=== PATIENT | male | born 1950 | race Caucasian/White ===

== ENCOUNTER 2018-01-18 10:40 | Day surgery (SDC) | payer MEDICARE, OTHER ==
[~2018-01-18 10:40] MED LIST: RINGER'S SOLUTION,LACTATED 1,000 ML IV PRN; ceFAZolin SODIUM 2 GM in DEXTROSE 5 % IN WATER 50 ML IV PRN
[2018-01-18] MEDS ORDERED: ceFAZolin SODIUM 1 GM VIAL IV ONE (11:35)
[2018-01-18] MEDS ORDERED: BUPIVACAINE HCL/EPINEPHRINE 50 ML VIAL IJ ONE ×2 (11:54)
[2018-01-18] MEDS ORDERED: RINGER'S SOLUTION,LACTATED 1,000 ML IV ONE ×2 (11:55→11:56)
[2018-01-18] MEDS ORDERED: RINGER'S SOLUTION,LACTATED 1,000 ML IV PRN (13:18)
[2018-01-18] MEDS ORDERED: HYDROmorphone HCL 1 MG/ML DISP.SYRIN IV ONE (13:19)
[2018-01-18] MEDS ORDERED: oxyCODONE HCL/ACETAMINOPHEN 1 TAB TABLET PO ONE (14:00)
[2018-01-18] MEDS ORDERED: HYDROmorphone HCL 2 MG/ML VIAL IV ONE (14:00)
--- NOTE | 2018-01-18 14:33 | OR ---
Operative Report - Dictated Report Narrative: OPERATIVE REPORT DATE OF OPERATION: 01/18/2018 PREOPERATIVE DIAGNOSIS: Ventral incisional hernia POSTOPERATIVE DIAGNOSIS: Ventral incisional hernia with a 4 cm fascial defect OPERATION: Repair of ventral incisional hernia using a large Ventralex hernia patch SURGEON: Radhika Matthews MD ANESTHESIA: Gen. antonio Hunter CRNA INDICATIONS FOR PROCEDURE: The patient is a 67-year-old male referred by Dr. Del Angel. He had a robotically assisted laparoscopic prostatectomy in 2016. He has developed an enlarging and increasingly symptomatic ventral incisional hernia just above the umbilicus. FINDINGS: 4 cm fascial defect with large hernia sac containing reducible normal -appearing small intestine NARRATIVE OF PROCEDURE: The patient was identified preoperatively, the surgical site was identified, and prior to the administration of anesthetic a multidisciplinary timeout was observed. The patient was placed supine, SCDs were applied, 2 g of intravenous Ancef administered. General endotracheal anesthetic was administered. The patient's abdomen was prepped with Betadine solution and the area around the umbilicus isolated with 4 sterile towels. The remainder the patient was covered with a sterile disposable drape. An elliptical skin incision was outlined with a marking pen to include the previous supraumbilical scar. The area was infiltrated with 0.25% Marcaine with epinephrine. The skin incision was made sharply and dissection was carried through normal subcutaneous tissue with electrocautery until a hernia sac was identified. This was dissected free from surrounding subcutaneous tissue down to the fascia. The sac was then opened and a forefinger inserted to allow further dissection. The sac was then amputated and submitted to pathology. Digital palpation of the undersurface of the anterior abdominal wall revealed no local adhesions, and the visible small intestine appeared normal. A large Ventralex hernia patch was then inserted through the defect and unfurled completely. The wings of the patch were then secured circumferentially to the fascial defect with interrupted sutures of 0 Ethibond. After receiving a correct sponge needle and advanced to mechanical attention was turned to closing the abdomen. Subcutaneous tissue was approximated over the mesh with 2 layers of interrupted chromic sutures. The skin was secured with a running subcuticular suture of 4-0 Vicryl. The operative site was washed and dried. A dressing of Dermabond folded 4 x 4 and Medipore tape was applied. The operative procedure was terminated at this point. The patient tolerated the anesthetic and procedure well without complication. There was no measurable blood loss. The excised skin, subcutaneous tissue, and hernia sac were submitted to pathology. The patient was transferred to the recovery room awake, extubated, and in stable condition. The patient remained stable throughout a period of postoperative observation. His pain was controlled with by mouth Percocet, he was up without assistance and tolerated a general diet. His dressing remained dry. I shared the operative findings with him and his . He was discharged home with instructions not to lift and not to drive. He is to keep his current dressing dry and intact for 48 hours but then may shower and change the dressing daily or as needed. He has phone numbers to call for questions or concerns. He was given a prescription for Percocet 5/325 mg #30 1-2 po Q4-6hrs prn pain. A return office appointment was made for 1 week. Reviewed and electronically signed
[2018-01-18] MEDS: MORPHINE SULFATE 2 MG/ML DISP.SYRIN IV PRN ×2 (15:05→15:30)
[2018-01-18 16:04] VITALS: BP 133/74
== END 2018-01-18 10:41 | disposition home or self-care (01) ==
LOC: AMB 10:40
PROVIDERS: ATTEND Surgery
PROC: 0WUF0JZ Supplement Abdominal Wall with Synthetic Substitute, Open Approach (ICD-10-PCS; principal; 2018-01-18)
DX: K43.2 Incisional hernia without obstruction or gangrene (principal); C61 Malignant neoplasm of prostate; I12.9 Hypertensive chronic kidney disease with stage 1 through stage 4 chronic kidney disease, or unspecified chronic kidney disease; N18.3 Chronic kidney disease, stage 3 (moderate); K21.9 Gastro-esophageal reflux disease without esophagitis; G47.33 Obstructive sleep apnea (adult) (pediatric); E66.9 Obesity, unspecified; Z68.35 Body mass index [BMI] 35.0-35.9, adult; Z87.891 Personal history of nicotine dependence